=== PATIENT | male | born 1970 | race Caucasian/White ===

== ENCOUNTER 2016-12-04 00:09 | Inpatient (IN) | payer BC, OTHER ==
--- NOTE | 2016-12-04 00:39 | ED ---
Psych HPI - General Chief Complaint: Psychiatric Symptoms Stated Complaint: mental health Time Seen by Provider: 12/04/16 00:22 Source: patient, RN notes reviewed Mode of arrival: ambulatory - History of Present Illness Initial Comments: 46 yo male presents to the emergency department with a chief complaint of suicidal ideation. Patient states that he recently went through a separation with his he sells life with another man coby. Patient states his only been taking about suicide but this seemed to make it worse. Patient states she is here for help. He is concerned about her safety. Patient denies any history of this in the past.Patient denies any recent fever, chills, shortness of breath, chest pain, back pain, abdominal pain, nausea vomiting, numbness or tingling, dysuria or hematuria, constipation or diarrhea, headaches or visual changes, or any other current symptoms. - Related Data Home Medications Medication Instructions Recorded Confirmed No Known Home Medications [No 12/04/16 12/04/16 Known Home Medications] Allergies Allergy/AdvReac Type Severity Reaction Status Date / Time No Known Allergies Allergy Verified 12/04/16 00:21 Review of Systems ROS Statement: Those systems with pertinent positive or pertinent negative responses have been documented in the HPI. ROS Other: All systems not noted in ROS Statement are negative. Past Medical History Additional Past Medical History / Comment(s): [place] Spotted Fever 1970 History of Any Multi-Drug Resistant Organisms: None Reported Past Surgical History: No Surgical Hx Reported Past Psychological History: No Psychological Hx Reported Smoking Status: Current every day smoker Past Alcohol Use History: Daily Past Drug Use History: None Reported General Exam Limitations: no limitations General appearance: alert, in no apparent distress Neck exam: Present: normal inspection. Absent: tenderness, meningismus, lymphadenopathy Respiratory exam: Present: normal lung sounds bilaterally. Absent: respiratory distress, wheezes, rales, rhonchi, stridor Cardiovascular Exam: Present: regular rate, normal rhythm, normal heart sounds. Absent: systolic murmur, diastolic murmur, rubs, gallop, clicks Back exam: Present: normal inspection Neurological exam: Present: alert, oriented X3, CN II-XII intact. Absent: motor sensory deficit Psychiatric exam: Present: depressed, suicidal ideation. Absent: homicidal ideation Skin exam: Present: warm, dry, intact, normal color. Absent: rash Course Vital Signs 12/04/16 00:17 Temperature 97.8 F Pulse Rate 79 Respiratory 18 Rate Blood Pressure 137/95 O2 Sat by Pulse 99 Oximetry Medical Decision Making - Medical Decision Making 46 yo male presents emergency department chief complaint of suicidal ideation. At this time the patient does not appear to be suffering from acute medical emergencies. This time the patient is cleared to be evaluated by psychiatry. This and patient will be transferred to inpatient psych. Disposition Clinical Impression: Depression Disposition: TRANSFER TO PSYCH HOSP/UNIT
[2016-12-04] MEDS ORDERED: MAGNESIUM HYDROXIDE 2,400 MG/10 ML CUP PO PRN (03:15)
[2016-12-04] MEDS ORDERED: ZIPRASIDONE 20 MG VIAL IM PRN (03:15)
[2016-12-04] MEDS ORDERED: ACETAMINOPHEN TAB 325 MG TAB PO PRN (03:15)
[2016-12-04] MEDS ORDERED: MAG HYDROX/AL HYDROX/SIMETH 30 ML CUP PO PRN (03:15)
[2016-12-04] MEDS ORDERED: LORazepam 2 MG/ML SYRINGE IM PRN (03:24)
[2016-12-04] MEDS: LORazepam 1 MG TAB PO PRN ×3 (04:04→22:09)
[2016-12-04 04:50] VITALS: BMI 21.4
[2016-12-04 08:39] LABS: Basophils % (A) 1 %; CH 32.5; CHCM 34.1; Eosinophils # (A) 0.2 k/uL (0-0.7); Eosinophils % (A) 4 %; HCT 39.5 % (39.0-53.0); HDW 2.56; HGB 12.9 gm/dL (13.0-17.5); Luc # (Auto) 0.21; Luc % (Auto) 4; Lymphocytes # (A) 1.9 k/uL (1.0-4.8); Lymphocytes % (A) 34 %; MCH 31.3 pg (25.0-35.0); MCHC 32.7 g/dL (31.0-37.0); MCV 95.7 fL (80.0-100.0); Mean Platelet Volume 6.8; Monocytes # (A) 0.4 k/uL (0-1.0); Monocytes % (A) 7 %; Neutrophils # (A) 2.9 k/uL (1.3-7.7); Neutrophils % (A) 51 %; RBC 4.13 m/uL (4.30-5.90); RDW 13.6 % (11.5-15.5); WBC 5.7 k/uL (3.8-10.6); WBC (Perox) 5.65
[2016-12-04 08:44] LABS: ALT 34 U/L (21-72); AST 24 U/L (17-59); Alkaline Phosphatase 63 U/L (38-126); Anion Gap 7 mmol/L; Blood Urea Nitrogen 11 mg/dL (9-20); Calcium 9.4 mg/dL (8.4-10.2); Carbon Dioxide 31 mmol/L (22-30); Chloride 103 mmol/L (98-107); Glucose 92 mg/dL (74-99); Non-African American GFR(MDRD) >60 (>60 ml/min/1.73 sqM); Potassium 4.1 mmol/L (3.5-5.1); Sodium 141 mmol/L (137-145); Total Bilirubin 0.8 mg/dL (0.2-1.3); Total Protein 6.5 g/dL (6.3-8.2)
[2016-12-04] MEDS: NICOTINE 21MG/24HR PATCH TRANSDERM SCH (08:51)
--- NOTE | 2016-12-04 11:09 | P.CONS ---
History of Present Illness - Reason for Consult Consult date: 12/04/16 medical management - History of Present Illness This is a 46-year-old male. He does not have a primary care physician. He has a past medical history of [place] spotted fever in 1969. He also states he has had depression and anxiety all his life but has not been on treatment lately. He did have an admission to the mental health unit when he was 17 years old. He states he is currently going through a separation from his and has been very depressed. He states his anxiety is through the roof. He drove by a bar and saw his and her boss there. He states he has not been sleeping. He has a history of alcohol abuse and has been clean for 20 years and started drinking Smir[place] ice to have weeks ago. He is drinking an 8 pack per day. He denies any other street drug use. Patient came into [facility] emergency center for evaluation. TSH 1.990. Urine drug screen was negative and patient has been admitted to the mental health unit. Review of Systems All systems: negative Constitutional: Denies chills, Denies fever Eyes: denies blurred vision, denies pain Ears, nose, mouth and throat: Denies headache, Denies sore throat Cardiovascular: Denies chest pain, Denies shortness of breath Respiratory: Denies cough Gastrointestinal: Denies abdominal pain, Denies diarrhea, Denies nausea, Denies vomiting Musculoskeletal: Denies myalgias Integumentary: Denies pruritus, Denies rash Neurological: Denies numbness, Denies weakness Psychiatric: Reports anxiety, Reports hopelessness, Reports insomnia, Denies depression Endocrine: Denies fatigue, Denies weight change Past Medical History Past Medical History: No Reported History Additional Past Medical History / Comment(s): [place] Spotted Fever 1969 History of Any Multi-Drug Resistant Organisms: None Reported Past Surgical History: No Surgical Hx Reported Past Psychological History: Anxiety, Depression Smoking Status: Current every day smoker Past Alcohol Use History: Daily Additional Past Alcohol Use History / Comment(s): Patient is a smoker of one half pack per day for 30 or more years. He denies any medical marijuana, marijuana or street drug use. He has a history of alcohol abuse and has been clean for 20 years until 2 weeks ago when he started drinking an 8 pack of some urine off ice daily. Past Drug Use History: None Reported - Past Family History Father Additional Family Medical History / Comment(s): Father is alive at age 72 with no major medical problems. Mother Additional Family Medical History / Comment(s): Mother is alive at age 68 with history of motor vehicle accident and has significant hip and knee problems. Patient is an only child and does not have any brothers or sisters. Daughter(s) Additional Family Medical History / Comment(s): Patient has 3 daughters ages 22 , 14, 8 with no major medical problems. Medications and Allergies Home Medications Medication Instructions Recorded Confirmed Type No Known Home Medications [No 12/04/16 12/04/16 History Known Home Medications] Allergies Allergy/AdvReac Type Severity Reaction Status Date / Time No Known Allergies Allergy Verified 12/04/16 04:55 Physical Exam Vitals: Vital Signs Temp Pulse Resp BP 12/04/16 04:41 98.1 F 83 20 138/87 Intake and Output 12/03/16 12/04/16 12/04/16 22:59 06:59 14:59 Other: Weight 77.927 kg Gen: This is a thin 46-year-old male. He is cooperative. HEENT: Head is atraumatic, normocephalic. Pupils equal, round. Sclerae is anicteric. NECK: Supple. No JVD. No lymphadenopathy. No thyromegaly. LUNGS: Clear to auscultation. No wheezes or rhonchi. No intercostal retractions. HEART: Regular rate and rhythm. No murmur. ABDOMEN: Soft. Bowel sounds are present. No masses. No tenderness. EXTREMITIES: No pedal edema. No calf tenderness. NEUROLOGICAL: Patient is awake, alert and oriented x3. Cranial nerves 2 through 12 are grossly intact. Results CBC & Chem 7: 12/04/16 08:15 12/04/16 08:15 Labs: Abnormal Lab Results - Last 24 Hours (Table) 12/04/16 12/04/16 Range/Units 08:15 08:15 RBC 4.13 L (4.30-5.90) m/uL Hgb 12.9 L (13.0-17.5) gm/dL Carbon Dioxide 31 H (22-30) mmol/L Assessment and Plan Plan: 1. Depression and anxiety. Patient admitted to the mental health unit. Continue current plan of care. 2. Tobacco use and dependence. Continue nicotine patch. 3. History of alcohol abuse with recent relapse. Patient is on Ativan. Impression and plan of care have been directed as dictated by the signing physician. Humera Guillen nurse practitioner acting as scribe for signing physician. Time with Patient: Greater than 30
[2016-12-04] MEDS: ESCITALOPRAM 10 MG TAB PO SCH (12:50)
--- NOTE | 2016-12-04 12:55 | P.HP ---
Psychiatric H&P - . History & Physical: Allergies Allergy/AdvReac Type Severity Reaction Status Date / Time No Known Allergies Allergy Verified 12/04/16 04:55 Vital Signs Temp 98.1 F 12/04/16 04:41 Pulse 83 12/04/16 04:41 Resp 20 12/04/16 04:41 BP 138/87 12/04/16 04:41 Pulse Ox 99 12/04/16 00:17 Intake & Output 12/03/16 12/04/16 12/04/16 18:59 06:59 18:59 Weight 77.927 kg Laboratory Last Values WBC 5.7 k/uL (3.8-10.6) 12/04/16 08:15 RBC 4.13 m/uL (4.30-5.90) L 12/04/16 08:15 Hgb 12.9 gm/dL (13.0-17.5) L 12/04/16 08:15 Hct 39.5 % (39.0-53.0) 12/04/16 08:15 MCV 95.7 fL (80.0-100.0) 12/04/16 08:15 MCH 31.3 pg (25.0-35.0) 12/04/16 08:15 MCHC 32.7 g/dL (31.0-37.0) 12/04/16 08:15 RDW 13.6 % (11.5-15.5) 12/04/16 08:15 Plt Count 264 k/uL (150-450) 12/04/16 08:15 Neutrophils % 51 % 12/04/16 08:15 Lymphocytes % 34 % 12/04/16 08:15 Monocytes % 7 % 12/04/16 08:15 Eosinophils % 4 % 12/04/16 08:15 Basophils % 1 % 12/04/16 08:15 Neutrophils # 2.9 k/uL (1.3-7.7) 12/04/16 08:15 Lymphocytes # 1.9 k/uL (1.0-4.8) 12/04/16 08:15 Monocytes # 0.4 k/uL (0-1.0) 12/04/16 08:15 Eosinophils # 0.2 k/uL (0-0.7) 12/04/16 08:15 Basophils # 0.0 k/uL (0-0.2) 12/04/16 08:15 Sodium 141 mmol/L (137-145) 12/04/16 08:15 Potassium 4.1 mmol/L (3.5-5.1) 12/04/16 08:15 Chloride 103 mmol/L (98-107) 12/04/16 08:15 Carbon Dioxide 31 mmol/L (22-30) H 12/04/16 08:15 Anion Gap 7 mmol/L 12/04/16 08:15 BUN 11 mg/dL (9-20) 12/04/16 08:15 Creatinine 0.97 mg/dL (0.66-1.25) 12/04/16 08:15 Est GFR (MDRD) Af Amer >60 (>60 ml/min/1.73 sqM) 12/04/16 08:15 Est GFR (MDRD) Non-Af >60 (>60 ml/min/1.73 sqM) 12/04/16 08:15 Glucose 92 mg/dL (74-99) 12/04/16 08:15 Calcium 9.4 mg/dL (8.4-10.2) 12/04/16 08:15 Total Bilirubin 0.8 mg/dL (0.2-1.3) 12/04/16 08:15 AST 24 U/L (17-59) 12/04/16 08:15 ALT 34 U/L (21-72) 12/04/16 08:15 Alkaline Phosphatase 63 U/L (38-126) 12/04/16 08:15 Total Protein 6.5 g/dL (6.3-8.2) 12/04/16 08:15 Albumin 3.9 g/dL (3.5-5.0) 12/04/16 08:15 TSH 1.990 mIU/L (0.465-4.680) 12/04/16 08:15 Urine Opiates Screen Not Detected (NotDetected) 12/04/16 01:30 Ur Oxycodone Screen Not Detected (NotDetected) 12/04/16 01:30 Urine Methadone Screen Not Detected (NotDetected) 12/04/16 01:30 Ur Propoxyphene Screen Not Detected (NotDetected) 12/04/16 01:30 Ur Barbiturates Screen Not Detected (NotDetected) 12/04/16 01:30 U Tricyclic Antidepress Not Detected (NotDetected) 12/04/16 01:30 Ur Phencyclidine Scrn Not Detected (NotDetected) 12/04/16 01:30 Ur Amphetamines Screen Not Detected (NotDetected) 12/04/16 01:30 U Methamphetamines Scrn Not Detected (NotDetected) 12/04/16 01:30 U Benzodiazepines Scrn Not Detected (NotDetected) 12/04/16 01:30 Urine Cocaine Screen Not Detected (NotDetected) 12/04/16 01:30 U Marijuana (THC) Screen Not Detected (NotDetected) 12/04/16 01:30 12/04/16 12:45 IDENTIFYING DATA: This patient is a 46-year-old male who presented to the emergency room with acute suicidal ideation. HPI: The patient states that he has been experiencing severe symptoms of depression and reports that he is "at the lowest point ever". He feels hopeless he has suicidal thoughts with a plan of asphyxiating himself in the garage. Sleep is poor energy is low appetite is decreased. He is experiencing anhedonia. This occurs in the context of his asking for a separation and more recently talking about getting . Just the other evening he found her out at the bar with her boss. He states that was "the last straw". He reports a long history of major depressive disorder episodes. He states he has no insurance and was not able to get into an outpatient mental health clinic. He endorses intermittent symptoms of anxiety. No history of hypomanic or manic episodes, no report of hallucinations or specific delusions. He reports having no firearms at home. He has no homicidal ideation intent or plan. PAST PSYCHIATRIC HISTORY: This is the patient's second inpatient psychiatric admissions the first one was age [age] years old for suicidal ideation. No history of suicide attempts. He has previously been treated with Adderall Wellbutrin and Lexapro. He reports a good response with Lexapro in the past. PMH: None reported ALLERGIES: NO KNOWN DRUG ALLERGIES MEDICATIONS: None CHEMICAL DEPENDENCY HISTORY: He reports a history of alcohol use disorder and he has been sober for 20 years however 3 weeks ago he started drinking 8-12 beers a day. No use of marijuana or other illicit drugs he has never been placed in residential treatment for chemical dependency reasons. FAMILY PSYCHIATRIC HISTORY: None reported no suicides in the family FAMILY CHEMICAL DEPENDENCY HISTORY: The patient's biological father and maternal uncle were known to have alcohol use disorder SOCIAL HISTORY: The patient is 46 years old he's been for 22 years they have been for approximately 3 weeks. They have 3 children ages 8 and 14 together he has a 22-year-old child from another relationship. The patient is originally from [place] his biological father prior to his and he was raised by a stepfather. 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 He endorses no PTSD symptoms. He was honorably discharged. Legal history he was arrested 25 years ago for breaking and entering and uttering and publishing, no abuse history endorsed. MENTAL STATUS EXAM: The patient is a tall thin balding male. He wears eyeglasses he seated calmly in his chair dressed in a T-shirt and jeans. Eye contact is appropriate. He describes a significantly depressed mood with hopelessness thinking and suicidal ideation. He reports no homicidal ideation intent or plan. He endorses no auditory or visual hallucinations or any specific delusions. There is no evidence of psychosis. Thought process is linear he demonstrates no tangential thinking associations or flight of ideas. Insight and judgment limited. He demonstrates no tremulousness activity no psychomotor slowing. He demonstrates no verbal or physical aggressiveness. He is oriented to person place and date he is able to spell world backwards. STRENGTHS/WEAKNESSES: Strengths: Housing, employment, and presenting for help weaknesses: Relapse with alcohol use INTELLECTUAL FUNCTIONING: Average IMPRESSIONS: [] 1. Major depressive disorder recurrent severe without psychosis, alcohol use disorder 2. Marital separation 3. Psychosocial dysfunction due to exacerbation of depressive symptoms in the context of relapsing alcohol use PLAN: The patient has been admitted to the mental health unit he is here voluntarily. We reviewed his presenting symptoms and medication options. We decided to initiate Lexapro 10 mg daily as he has been successful with that medication in the past and he felt that it worked quickly. We are monitoring for any alcohol withdrawal symptoms Ativan is available as needed. He has been seen for a routine medical consultation. Social work will meet with the patient to complete a psychosocial assessment and begin discharge planning. We will involve family in treatment and discharge planning as he will allow. He is encouraged to participate in the milieu. We will monitor for safety
[2016-12-05] MEDS: ESCITALOPRAM 10 MG TAB PO SCH (08:42)
[2016-12-05] MEDS: NICOTINE 21MG/24HR PATCH TRANSDERM SCH (08:42)
[2016-12-05] MEDS: LORazepam 1 MG TAB PO PRN ×2 (08:43→21:21)
--- NOTE | 2016-12-05 10:32 | P.PN ---
Progress Note - Text Interval history: The patient is found in the hallway he follows me to an interview room. He reports that he slept quite well last night he did utilize the Ativan at bedtime. His vital signs were within normal limits her out the day but they seem to heighten in the evening hours. He reports no feelings of alcohol withdrawal including tremor. He did speak with his 8-year-old daughter on the phone and that was helpful for him to hear her voice. He is trying to foster some optimistic thinking. No questions or concerns regarding his Lexapro. We discussed his use of alcohol he feels he does not need inpatient chemical dependency treatment but is willing to attend AA meetings upon discharge. He is concerned that if he's here too long it will affect his job status. Mental status exam: The patient's a thin male he seated calmly eye contact is appropriate speech is fluent. He is cooperative. He reports a depressed mood but some improvement today compared to yesterday. He states he has no acute suicidal ideation intent or plan. No homicidal ideation intent or plan. He is endorsing no symptoms of psychosis hypomania or wei and there is no evidence of those symptoms. Thought process is linear and goal-directed. He is oriented to person place and date. No psychomotor agitation observed. Plan: The patient will continue on his current medication we will monitor for any alcohol withdrawal symptoms. He is encouraged to continue participating in the milieu. Vital signs reviewed. Dr. Valero will assume care of this patient starting tomorrow.
[2016-12-06] MEDS: ESCITALOPRAM 10 MG TAB PO SCH (08:38)
[2016-12-06] MEDS: NICOTINE 21MG/24HR PATCH TRANSDERM SCH (08:38)
[2016-12-06] MEDS: LORazepam 1 MG TAB PO PRN (08:38)
[2016-12-06] MEDS ORDERED: hydrOXYzine PAMOATE 25 MG CAP PO PRN (17:06)
--- NOTE | 2016-12-06 17:14 | P.PN ---
Progress Note - Text Interval history: The patient was laying in his bed ,had been using at least two doses of Ativan over last 24 hours . He reports that he slept quite well last night he did utilize the Ativan at bedtime. His vital signs were within normal limits His last alcohol use was 4 days ago. He reports no feelings of alcohol withdrawal including tremor. . We discussed his use of alcohol he feels he does not need inpatient chemical dependency treatment but is willing to attend AA meetings upon discharge. He is concerned that if he's here too long it will affect his job status saying "THEY TOLD ME IF I SIGNED MYSELF IN I CAN SIGN MYSELF OUT",discussed with patient that we need to monitor any benzodiazepine withdrawal ,agreed to discontinue Ativan and monitor Vitals Mental status exam: The patient's a thin male he seated calmly eye contact is appropriate speech is fluent. He is cooperative. He reports a depressed mood and anxiety He states he has no acute suicidal ideation intent or plan. No homicidal ideation intent or plan. He is endorsing no symptoms of psychosis hypomania or wei and there is no evidence of those symptoms. Thought process is linear and goal-directed. He is oriented to person place and date. No psychomotor agitation observed. Plan: Continue Lexapro ,discontinue Ativan ,Vistaril PRN ,Trazodone PRN , encourage groups participation
[2016-12-06] MEDS: traZODone HCL 50 MG TAB PO PRN (22:03)
[2016-12-07 06:12] VITALS: RESP 16
[2016-12-07] MEDS: NICOTINE 21MG/24HR PATCH TRANSDERM SCH (08:53)
[2016-12-07] MEDS: ESCITALOPRAM 10 MG TAB PO SCH (08:54)
--- NOTE | 2016-12-07 11:46 | P.PN ---
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 He is cooperative. He reports a depressed mood and anxiety He states he has no acute suicidal ideation intent or plan. No homicidal ideation intent or plan. He is endorsing no symptoms of psychosis hypomania or wei and there is no evidence of those symptoms. Thought process is linear and goal-directed. He is oriented to person place and date. No psychomotor agitation observed. Plan: Increase Lexapro 20 mg,Vistaril PRN ,Trazodone PRN ,encourage groups participation
[2016-12-07] MEDS: traZODone HCL 50 MG TAB PO PRN (20:50)
[2016-12-08 06:41] VITALS: BP 116/56; PULSE 82; TEMP 97.7
[2016-12-08] MEDS: NICOTINE 21MG/24HR PATCH TRANSDERM SCH (08:01)
[2016-12-08] MEDS ORDERED: ESCITALOPRAM 20 MG TAB PO SCH (09:00)
--- NOTE | 2016-12-08 09:07 | DS ---
DATE OF ADMISSION: 12/04/2016 DATE OF DISCHARGE: 12/08/2016 CONSULT PHYSICIAN: Randolph. CONSULTING PROVIDER: Humera Guillen. CONSULT REASON: For medical management. Do you want consulting provider notified? Yes. DISCHARGE DIAGNOSES: 1. Depressive disorder, not otherwise specified versus chronic depression. 2. Alcohol use disorder, continuous. BRIEF SUMMARY OF THE ADMISSION NOTE: The patient was admitted to the mental health unit from the emergency department for depression and suicidal ideation. For complete history and physical examination, please refer to Dr. Esquivel dictation on December 04. HOSPITAL COURSE: Patient was admitted on voluntary basis and he was started on alcohol detox. In addition, he was started on Lexapro. During the first 48 hours, patient was very drowsy sleeping most of the daytime as he was getting between 2 and 3 mg of Ativan a day. Initially his vital signs were high, however, after the first 24 hours, they were within normal limits. When I saw the patient on December 06, on Tuesday, patient did not have any alcohol withdrawal symptoms including tremor. Patient was only complaining of feeling tired and fatigued so I discontinued the Ativan and I did monitor his vital signs within the next 48 hours, they were stable and patient did not experience any alcohol withdrawal or benzodiazepine withdrawal. Patient was having trouble sleeping at night as he used to have the Ativan for sleep so I started him on trazodone and it was effective and he was able to sleep between 7 to 8 hours at night. I did speak with the patient about his condition and he stated that he did accept the end of his marriage and he wanted to be better father to his children, as he has 3 daughters, age 8, 14 and 22. Patient stated that he has been staying with his parents who are very supportive to him and he did start new job that he does like 2 months ago. Patient was discussing a lot of positive optimist goals and he did not have any side effect from psychotropic medication. I had a lengthy discussion with him regarding his use of alcohol, but he does not feel that he needs inpatient chemical dependency treatment, but he stated that he will be attending AA meeting on a daily basis upon discharge. MENTAL STATUS EXAMINATION: At the time of discharge, patient is a male who ( ) calmly, good eye contact, speech fluent, cooperative. He denied any depressive symptoms. He denied any anxiety symptoms. He denied any acute suicidal ideation, intent or plan. No homicidal ideation, intent or plan. He is not endorsing any symptoms of psychosis including idea of reference or hallucinations. Denied any hypomania or wei. Thought process is linear and goal directed. He is oriented to person, place and date. There is no verbal or physical aggression observed. His insight and judgment are improving. PLAN: 1. Patient will be discharged from the mental health unit today. 2. Patient wouldn't attend AA meeting at least between 4 to 5 a week. 3. Patient will return back to work and he was given excuse for the last couple of days. 4. Patient was given one-month supply of Lexapro 20 mg daily for depression and anxiety; trazodone 50 mg as needed for insomnia and nicotine patch for smoking cessation. 5. Patient is aware of the negative impact of alcohol on his mental and physical health and he did verbalize that he will stay in recovery and be compliant with outpatient counseling. There is no eminent safety risk and patient is appropriate for transition to outpatient care. Patient does not have access to any firearms. Patient was instructed to return to the emergency room if any acute safety concern. Patient's condition at the time of the discharge, stable.
== END 2016-12-08 12:21 | disposition home or self-care (01) | DRG 885 ==
LOC: EC 00:09 → 3MHU 02:43
PROVIDERS: ADMIT Psychiatry & Neurology Psychiatry; ATTEND Psychiatry & Neurology Psychiatry
PROC: HZ2ZZZZ Detoxification Services for Substance Abuse Treatment (ICD-10-PCS; principal; 2016-12-04)
DX: F33.2 Major depressive disorder, recurrent severe without psychotic features (principal); R45.851 Suicidal ideations; F41.9 Anxiety disorder, unspecified; F59 Unspecified behavioral syndromes associated with physiological disturbances and physical factors; F10.10 Alcohol abuse, uncomplicated; G47.00 Insomnia, unspecified; F17.200 Nicotine dependence, unspecified, uncomplicated; Z71.6 Tobacco abuse counseling; Z71.41 Alcohol abuse counseling and surveillance of alcoholic; Z63.5 Disruption of family by separation and divorce; Z81.1 Family history of alcohol abuse and dependence; Z86.19 Personal history of other infectious and parasitic diseases
CPT/HCPCS: 80053; 80306; 84443; 85025; 99285

== ENCOUNTER 2017-03-16 10:16 | Observation (INO) | payer OTHER ==
[2017-03-16] MEDS ORDERED: SODIUM CHLORIDE 0.9% 1,000 ML IV STA (11:44)
[2017-03-16] MEDS ORDERED: ONDANSETRON 4 MG/2 ML VIAL IVP STA (11:44)
[2017-03-16] MEDS ORDERED: PANTOPRAZOLE 40 MG/10 ML VIAL IVP STA (11:46)
--- NOTE | 2017-03-16 11:48 | ED ---
General Adult HPI - General Chief complaint: Nausea/Vomiting/Diarrhea Stated complaint: abd pain Time Seen by Provider: 03/16/17 10:45 Source: patient, family, RN notes reviewed Mode of arrival: ambulatory Limitations: no limitations - History of Present Illness Initial comments: This is a 46-year-old male who presents emergency Department complaining of vomiting. Patient states this is been ongoing for 3 years. Patient states he gets symptoms sick quickly but when he starts to vomit he can't seem to stop for a couple of days. Patient started vomiting on Tuesday he vomited throughout the night on Tuesday however he felt better Went to work. Tuesday night he started vomiting again and he continued vomiting yesterday and again this morning. Patient states in between the vomiting episodes she feels fine and eating normally. Patient states once he starts vomiting he has no abdominal pain except for when he is vomiting aside from that his belly feels fine. Patient denies any diarrhea. Patient denies any burning sensation or heartburn-like symptoms. Patient denies any chest pain difficult breathing shortness of breath. Patient denies any patient denies numbness weakness. Patient denies any recent fever or chills. Patient denies any back pain. Patient denies any lightheadedness dizziness or near syncopal episode. - Related Data Previous Rx's Medication Instructions Recorded Escitalopram [Lexapro] 20 mg PO DAILY 30 Days 12/08/16 Allergies Allergy/AdvReac Type Severity Reaction Status Date / Time No Known Allergies Allergy Verified 03/16/17 10:58 Review of Systems ROS Statement: Those systems with pertinent positive or pertinent negative responses have been documented in the HPI. ROS Other: All systems not noted in ROS Statement are negative. Past Medical History Past Medical History: No Reported History Additional Past Medical History / Comment(s): [place] Spotted Fever 1970 History of Any Multi-Drug Resistant Organisms: None Reported Past Surgical History: No Surgical Hx Reported Past Psychological History: Anxiety, Depression Smoking Status: Current every day smoker Past Alcohol Use History: None Reported Past Drug Use History: None Reported - Past Family History Father Additional Family Medical History / Comment(s): Father is alive at age 72 with no major medical problems. Mother Additional Family Medical History / Comment(s): Mother is alive at age 68 with history of motor vehicle accident and has significant hip and knee problems. Patient is an only child and does not have any brothers or sisters. Daughter(s) Additional Family Medical History / Comment(s): Patient has 3 daughters ages 22 , 14, 8 with no major medical problems. General Exam - General Exam Comments Initial Comments: GENERAL: Patient is well-developed and well-nourished. Patient is nontoxic and well- hydrated and is in mild distress. ENT: Neck is soft and supple. No significant lymphadenopathy is noted. Oropharynx is clear. Moist mucous membranes. Neck has full range of motion without eliciting any pain. EYES: The sclera were anicteric and conjunctiva were pink and moist. Extraocular movements were intact and pupils were equal round and reactive to light. Eyelids were unremarkable. PULMONARY: Unlabored respirations. Good breath sounds bilaterally. No audible rales rhonchi or wheezing was noted. CARDIOVASCULAR: There is a regular rate and rhythm without any murmurs gallops or rubs. ABDOMEN: Soft and nontender with normal bowel sounds. No palpable organomegaly was noted. There is no palpable pulsatile mass. SKIN: Skin is clear with no lesions or rashes and otherwise unremarkable. NEUROLOGIC: Patient is alert and oriented x3. Cranial nerves II through XII are grossly intact. Motor and sensory are also intact. Normal speech, volume and content. Symmetrical smile. MUSCULOSKELETAL: Normal extremities with adequate strength and full range of motion. No lower extremity swelling or edema. No calf tenderness. LYMPHATICS: No significant lymphadenopathy is noted PSYCHIATRIC: Normal psychiatric evaluation. Normal interpersonal interactions appears functionally intact in deals appropriately with others. No signs of depression. No signs of anxiety. Limitations: no limitations Course Vital Signs 03/16/17 03/16/17 10:32 11:00 Temperature 97.9 F 97.2 F L Pulse Rate 66 72 Respiratory 18 16 Rate Blood Pressure 146/93 144/87 O2 Sat by Pulse 98 99 Oximetry Medical Decision Making - Medical Decision Making EKG shows sinus bradycardia with 59 bpm FL interval is 156 QRS is 90 QT interval 412 QTC is 407. Patient's EKG shows no ST segment elevation or depression or T wave abnormalities are noted. CAT scan showed esophagitis possibly. Patient had elevated lipase patient still continues to feel nauseous but has not vomited while in the ER patient also did receive Zofran and he did not eat over the last couple of days. - Lab Data Result diagrams: 03/16/17 10:50 03/16/17 10:50 Lab Results 03/16/17 03/16/17 Range/Units 10:50 10:50 WBC 10.2 (3.8-10.6) k/uL RBC 4.76 (4.30-5.90) m/uL Hgb 15.1 (13.0-17.5) gm/dL Hct 44.4 (39.0-53.0) % MCV 93.1 (80.0-100.0) fL MCH 31.8 (25.0-35.0) pg MCHC 34.1 (31.0-37.0) g/dL RDW 13.4 (11.5-15.5) % Plt Count 265 (150-450) k/uL Neutrophils % 82 % Lymphocytes % 10 % Monocytes % 5 % Eosinophils % 1 % Basophils % 0 % Neutrophils # 8.3 H (1.3-7.7) k/uL Lymphocytes # 1.1 (1.0-4.8) k/uL Monocytes # 0.5 (0-1.0) k/uL Eosinophils # 0.1 (0-0.7) k/uL Basophils # 0.0 (0-0.2) k/uL Sodium 137 (137-145) mmol/L Potassium 3.7 (3.5-5.1) mmol/L Chloride 100 (98-107) mmol/L Carbon Dioxide 26 (22-30) mmol/L Anion Gap 11 mmol/L BUN 17 (9-20) mg/dL Creatinine 0.82 (0.66-1.25) mg/dL Est GFR (MDRD) Af Amer >60 (>60 ml/min/1.73 sqM) Est GFR (MDRD) Non-Af >60 (>60 ml/min/1.73 sqM) Glucose 103 H (74-99) mg/dL Calcium 9.3 (8.4-10.2) mg/dL Total Bilirubin 0.5 (0.2-1.3) mg/dL AST 20 (17-59) U/L ALT 21 (21-72) U/L Alkaline Phosphatase 101 (38-126) U/L Total Protein 6.8 (6.3-8.2) g/dL Albumin 4.2 (3.5-5.0) g/dL Amylase 88 (30-110) U/L Lipase 565 H (23-300) U/L Disposition Clinical Impression: Pancreatitis, Intractable vomiting Disposition: ADMITTED IP TO THIS HOSP Referrals: None,Stated [Primary Care Provider] - 1-2 days Time of Disposition: 13:37
[2017-03-16 12:01] LABS: Basophils % (A) 0 %; Eosinophils # (A) 0.1 k/uL (0-0.7); Eosinophils % (A) 1 %; HDW 2.36; RDW 13.4 % (11.5-15.5)
[2017-03-16 12:04] LABS: CH 33.4; HCT 44.4 % (39.0-53.0); HGB 15.1 gm/dL (13.0-17.5); Luc # (Auto) 0.17; Luc % (Auto) 2; Lymphocytes # (A) 1.1 k/uL (1.0-4.8); Lymphocytes % (A) 10 %; MCH 31.8 pg (25.0-35.0); MCHC 34.1 g/dL (31.0-37.0); MCV 93.1 fL (80.0-100.0); Monocytes # (A) 0.5 k/uL (0-1.0); Monocytes % (A) 5 %; Neutrophils # (A) 8.3 k/uL (1.3-7.7); Neutrophils % (A) 82 %; RBC 4.76 m/uL (4.30-5.90); WBC 10.2 k/uL (3.8-10.6); WBC (Perox) 9.85
[2017-03-16 12:09] LABS: ALT 21 U/L (21-72); AST 20 U/L (17-59); Alkaline Phosphatase 101 U/L (38-126); Amylase 88 U/L (30-110); Anion Gap 11 mmol/L; Blood Urea Nitrogen 17 mg/dL (9-20); Calcium 9.3 mg/dL (8.4-10.2); Carbon Dioxide 26 mmol/L (22-30); Chloride 100 mmol/L (98-107); Glucose 103 mg/dL (74-99); Non-African American GFR(MDRD) >60 (>60 ml/min/1.73 sqM); Potassium 3.7 mmol/L (3.5-5.1); Sodium 137 mmol/L (137-145); Total Bilirubin 0.5 mg/dL (0.2-1.3); Total Protein 6.8 g/dL (6.3-8.2)
[2017-03-16] MEDS ORDERED: RX INFO: IV CONTRAST WAS GIVEN 1 EACH MISC MISCELLANE PRN (12:20)
--- NOTE | 2017-03-16 13:30 | CT ---
EXAMINATION TYPE: CT abdomen pelvis w con DATE OF EXAM: 03/16/2017 COMPARISON: NONE HISTORY: Abd pain with nausea vomiting and diarrhea. CT DLP: 602.2 mGycm, Automated Exposure Control for Dose Reduction was Utilized. CONTRAST: CT scan of the abdomen and pelvis is performed without oral but with IV Contrast, patient injected wi th 100 mL of Omnipaque 300. FINDINGS: LUNG BASES: No significant abnormality is appreciated. LIVER/GB: No significant abnormality is appreciated. PANCREAS: No significant abnormality is seen. SPLEEN: No significant abnormality is seen. ADRENALS: No significant abnormality is seen. KIDNEYS: There are 1-3 tiny calculi measuring 2 mm or smaller lower pole level right kidney. There is cortical medullary uptake but nonvisualized excretion bilaterally. There is renal pelvis prominence on the left without calyceal dilatation suggesting extrarenal pelvis. No obstructing calculi are kamila rly seen. There are few right-sided pelvic phleboliths noted. No intraluminal calculus and bladder is seen. BOWEL: Moderate wall thickening of distal esophagus extending through diaphragmatic hiatus is felt pr esent near axial image 3. Consider esophagitis, clinical correlation advised. Neoplasm can have this appearance. The need to further investigate by direct visualization should be based on clinical corre lation. Evaluation is suboptimal secondary to lack of enteric contrast. There is no suspicious small or large bowel dilatation. Appendix is felt within normal limits seen from inferior aspect of cecum. PROSTATE/SEMINAL VESICLES: Prostate gland is enlarged in size consistent with BPH. LYMPH NODES: No greater than 1cm abdominal or pelvic lymph nodes are appreciated. OSSEOUS STRUCTURES: There is moderate disc space narrowing with vacuum disc phenomenon and subchondra l cystic change L3-L4 and L4-L5 levels. There is mild height loss involving superior T12 endplate wit h sclerosis. OTHER: No significant additional abnormality is seen. IMPRESSION: 1. No bowel obstruction is seen. Possible distal esophagitis, clinical correlation advised 2.
[2017-03-16] MEDS ORDERED: SODIUM CHLORIDE 0.9% 1,000 ML IV ONE (13:38)
[2017-03-16] MEDS ORDERED: ONDANSETRON 4 MG/2 ML VIAL IVP PRN (13:40)
[2017-03-17 07:45] VITALS: RESP 20
[2017-03-17 08:18] LABS: ALT 17 U/L (21-72); AST 17 U/L (17-59); Alkaline Phosphatase 81 U/L (38-126); Amylase 51 U/L (30-110); Anion Gap 7 mmol/L; Blood Urea Nitrogen 11 mg/dL (9-20); Calcium 8.6 mg/dL (8.4-10.2); Carbon Dioxide 25 mmol/L (22-30); Chloride 105 mmol/L (98-107); Glucose 90 mg/dL (74-99); Non-African American GFR(MDRD) >60 (>60 ml/min/1.73 sqM); Potassium 3.9 mmol/L (3.5-5.1); Sodium 137 mmol/L (137-145); Total Bilirubin 0.7 mg/dL (0.2-1.3); Total Protein 5.9 g/dL (6.3-8.2)
[2017-03-17] MEDS ORDERED: PANTOPRAZOLE 40 MG/10 ML VIAL IVP SCH (09:00)
--- NOTE | 2017-03-17 10:15 | P.CONS ---
History of Present Illness - Reason for Consult Consult date: 03/17/17 pancreatitis Requesting physician: Frankie Jovel - History of Present Illness 46-year-old malehistory of anxiety depression cigarette dependency and [place] spotted fever 1969 presented with intractable nausea vomiting bilious emesis 4 days. These symptoms have been chronic for more than 5 years. Denies fever, chills, hematemesis hematochezia melena. No weight loss. Consultation requested for pancreatitis. Liver function tests normal. Amylase 88. Lipase 565 presently 97. no history of pancreatitis. remote EtOH more than 20 years ago. When questioned not actively drinking alcohol. Denies illicit drug use. denies epigastric pain mostly nausea. patient states his symptoms seem to be only in the morning and then he feels better in the afternoon. No changes in medications. No history of autoimmune disorders. CT without oral contrast abdomen pelvis reported moderate wall thickening of the distal esophagus extending to the diaphragmatic hiatus. Consider esophagitis. Neoplasm could have this appearance. Direct visualization contingent on clinical correlation. liver gallbladder pancreas spleen no significant abnormality seen. Review of Systems Constitutional: Denies fever, chills, sweats, weight gain, or loss. HEENT: Negative for migraines, blurred vision or loss, earaches, drainage, tinnitus, oral mucosal lesions, dysphagia, or odynophagia. Cardiac: Negative for chest pain, arrhythmias, or palpitation. Respiratory: Negative for shortness of breath, hemoptysis, cough, or sputum production. Gastrointestinal: See HPI for pertinent findings. Genitourinary: Negative for hematuria, urgency, frequency, polyuria, dysuria, or penile discharge. Musculoskeletal: Negative for muscle aches, swelling, arthritis, and arthralgias. Neurologic: Negative for stroke or TIA. Endocrine: Negative for thyroid problems. Skin: Negative for rash or itching. Psychiatric: Negative history for depression and anxiety All systems: negative (see HPI) Past Medical History Past Medical History: No Reported History Additional Past Medical History / Comment(s): [place] Spotted Fever 1969 History of Any Multi-Drug Resistant Organisms: None Reported Past Surgical History: No Surgical Hx Reported Past Psychological History: Anxiety, Depression Smoking Status: Current every day smoker Past Alcohol Use History: None Reported Past Drug Use History: None Reported - Past Family History Father Additional Family Medical History / Comment(s): Father is alive at age 72 with no major medical problems. Mother Additional Family Medical History / Comment(s): Mother is alive at age 68 with history of motor vehicle accident and has significant hip and knee problems. Patient is an only child and does not have any brothers or sisters. Daughter(s) Additional Family Medical History / Comment(s): Patient has 3 daughters ages 22 , 14, 8 with no major medical problems. Medications and Allergies Allergies Allergy/AdvReac Type Severity Reaction Status Date / Time No Known Allergies Allergy Verified 03/16/17 10:58 Physical Exam Vitals: Vital Signs Temp Pulse Pulse Resp BP BP BP 03/17/17 07:00 97.4 F L 59 L 20 121/91 03/16/17 23:00 98.2 F 70 18 125/75 03/16/17 15:00 97.7 F 63 16 122/76 03/16/17 11:00 97.2 F L 72 16 144/87 03/16/17 10:32 97.9 F 66 18 146/93 Pulse Ox 03/17/17 07:00 96 03/16/17 23:00 98 03/16/17 15:00 96 03/16/17 11:00 99 03/16/17 10:32 98 Intake and Output 03/16/17 03/17/17 03/17/17 22:59 06:59 14:59 Intake Total 300 0 Balance 300 0 Intake: Oral 300 0 Other: Voiding Method Toilet # Voids 1 2 General appearance: The patient is alert, oriented, in no acute distress. HET: Head is normocephalic and atraumatic. Pupils are equal and reactive. Oropharynx is clear without lesions. Neck: Supple without lymphadenopathy. Trachea midline. Heart: S1 S2. Regular rate and rhythm. Lungs: No crackles or wheezes are heard. Abdomen: Soft, nontender, nondistended with bowel sounds. No peritoneal signs. No palpable organomegaly or masses. Extremities: Normal skin color and turgor. No cyanosis, rash, ulceration, clubbing, or edema. Radial and pedal pulses are 2/4 bilaterally. Neurological: No focal deficits. Strength and sensation are grossly intact. Results CBC & Chem 7: 03/16/17 10:50 03/17/17 07:45 Labs: Abnormal Lab Results - Last 24 Hours (Table) 03/16/17 03/16/1703/17/17 Range/Units 10:50 10:50 07:45 Neutrophils # 8.3 H (1.3-7.7) k/uL Glucose 103 H (74-99) mg/dL ALT 17 L (21-72) U/L Total Protein 5.9 L (6.3-8.2) g/dL Albumin 3.3 L (3.5-5.0) g/dL Lipase 565 H (23-300) U/L Assessment and Plan (1) Serum lipase elevation Narrative/Plan: 46-year-old male with acute on chronic nausea vomiting greater than 5 year duration presents with nausea and nonspecific elevation of lipase and normal amylase with history of remote EtOH abuse not actively drinking alcohol possible acute pancreatitis. CT imaging reported no abnormality of the gallbladder or pancreas. esophageal thickening per CT neoplasm cannot be excluded. Status: Acute (2) Intractable vomiting Status: Acute Plan: 1. GI prophylaxis Protonix 40 mg IV. 2. We'll proceed with EGD evaluation today to evaluate CT findings. 3. Supportive measures. The recreational sports director has discussed the risks, benefits and alternative therapies for the above-mentioned procedure and for both sedation/analgesia as well as necessary blood product administration, if indicated, as they pertain to this patient. The patient has indicated understanding and acceptance of the risks and procedures discussed. Thank you for this kind referral and the opportunity to participate in the care of your patient. This consultation was discussed with Dr. Zambrano. The impression and plan of care have been directed as dictated.
--- NOTE | 2017-03-17 12:05 | P.PN ---
Subjective 46 -year-old male being seen sitting up in bed. Patient is aware of the plan of care. Patient is scheduled today for EGD by GI service. Patient currently is denying any nausea vomiting and denying abdominal pain. Patient's initial presentation was to the emergency room with a chief complaint of nausea. Patient currently when questioning states he is not been actively drinking alcohol. Patient was admitted to the services of the attending with a GI consultation requested. Patient's CAT scan showed no acute abnormality of the gallbladder or the pancreas. It did show esophageal thickening per CT neoplastic could not be excluded. GI recommended proceeding with an EGD today to evaluate the CAT scan findings patient has elected to proceed. On admission the amylase was 565 this morning is down to 97. AST and ALT are not elevated. Patient states is anxious to be discharged if there are no acute findings on EGD Objective - Vital Signs Vital signs: Vital Signs Temp 97.4 F L 03/17/17 07:00 Pulse 59 L 03/17/17 07:00 Resp 20 03/17/17 07:00 BP 121/91 03/17/17 07:00 Pulse Ox 96 03/17/17 07:00 Intake & Output 03/16/17 03/17/17 03/17/17 18:59 06:59 18:59 Intake Total 300 Balance 300 Weight 81.647 kg Intake: Oral 300 Other: Voiding Method Toilet # Voids 1 2 - Exam GENERAL APPEARANCE: patient is alert, oriented, in no acute distress talkative sitting up in bed. VITAL SIGNS: Reviewed HEENT: Head is normocephalic and atraumatic. Pupils are equal and reactive. The nares are patent. Oropharynx is clear without lesions. NECK: Supple without lymphadenopathy. Traches midline. HEART: S1, S2. Regular rate and rhythm. No murmur noted denying chest pain LUNGS: No crackles or wheezes are heard. Adequate air entry bilaterally on room air ABDOMEN: Soft, nontender, nondistended with good bowel sounds. No peritoneal signs. No palpable organomegaly or masses. EXTREMITIES: Normal skin color and turgor. No cyanosis, rash, ulceration, clubbing or edema. Radial pedal pulses are 2/4 bilaterally. NEUROLOGICAL: No focal deficits. Strength and sensation are grossly intact. - Labs CBC & Chem 7: 03/16/17 10:50 03/17/17 07:45 Labs: Abnormal Lab Results - Last 24 Hours (Table) 03/16/17 03/16/17 03/17/17 Range/Units 10:50 10:50 07:45 Neutrophils # 8.3 H (1.3-7.7) k/uL Glucose 103 H (74-99) mg/dL ALT 17 L (21-72) U/L Total Protein 5.9 L (6.3-8.2) g/dL Albumin 3.3 L (3.5-5.0) g/dL Lipase 565 H (23-300) U/L Assessment and Plan Plan: Impression Present on admission nausea vomiting bilious emesis onset 4 days prior unclear etiology CAT scan of the abdomen and pelvis show moderate wall thickening of the distal esophagus extending into the diaphragm hiatus consider esophagitis neoplastm not ruled out Present on admission serum lipase elevation possible acute pancreatitis lipase on admission 565 Present on admission intractable nausea Plan Await the findings of the EGD Resume home meds as appropriate GI prophylaxis Further recommendations pending EGD findings The above dictated assessment and findings were discussed with dr juan . Impression and the plan of care have been dictated as directed. Nilda Jean nurse practitioner acting as a scribe for dr juan
--- NOTE | 2017-03-17 12:26 | HP ---
DATE OF ADMISSION: DATE OF SERVICE: 03/16/2017 CHIEF COMPLAINT: This is a 46-year-old white male presents with vomiting and abdominal pain that has been ongoing for the last 3 years. He starts to vomit for a couple days then he gets better. He denies any alcoholism issues. ( ) he is going through stress and anxiety from a divorce. No melena or hematochezia. He takes medicine Lexapro 20 mg a day at home. Fourteen-point review of systems negative except for the depression. PAST MEDICAL HISTORY: Only for anxiety, depression. Current every day smoker, apparently he had [place] Spotted Fever in 1969. FAMILY HISTORY: Father is okay. Mother is okay. Three daughters no problems. PHYSICAL EXAM: VITAL SIGNS: Stable, afebrile, well nourished, well developed, giving appropriate answers. CARDIOVASCULAR: S1, S2. LUNGS: Clear. GI is mild tenderness across diffuse abdomen. No mass or organomegaly. SKIN: Warm, dry, and intact. NEUROLOGIC: Alert and oriented x3. PSYCH: Fair mood and affect. Temperature 97.9, respiratory rate 16 to 18, pulse 66 to 72, blood pressure 140s over 80s to 90s. ASSESSMENT: 1. Pancreatitis, acute. 2. Intractable vomiting, acute. Clear liquid diet. GI consult. Monitor lipase levels.
[2017-03-17] MEDS ORDERED: SODIUM CHLORIDE 0.9% 1,000 ML IV ONE (12:59)
[2017-03-17] MEDS ORDERED: LIDOCAINE 1% INJ 10MG/ML (20 ML MDV) ONE (13:58)
[2017-03-17] MEDS ORDERED: PROPOFOL 10 MG/ML 20 ML VIAL IV ONE (13:58)
[2017-03-17] MEDS ORDERED: fentaNYL (PF) 50 MCG/ML 2 ML AMP ONE (13:58)
--- NOTE | 2017-03-17 14:37 | P.PCN ---
Date of Procedure: 03/17/17 Preoperative Diagnosis: Postoperative Diagnosis: Procedure(s) Performed: Procedure: Esophagogastroduodenoscopy and biopsy. Preoperative diagnosis: Intractable nausea and vomiting and abnormal CT of the abdomen. Postoperative diagnosis: 1. Hiatal hernia and LA grade A distal esophagitis. 2. Gastritis with an isolated area of edema and submucosal hemorrhage in the proximal body. 3. Mild duodenitis. 4. Multiple biopsies obtained from the duodenum, antrum, proximal stomach and esophagus. Preparation and sedation: Was provided by anesthesia. Brief clinical history: The patient is a 46-year-old male with history of anxiety and depression, currently going through a divorce, cigarette dependency and [place] spotted fever in 1969, presented with intractable nausea and vomiting bilious emesis 4 days. These symptoms have been chronic for more than 5 years. His parents indicated that this occurs couple times a year. Few years back, they felt it was related to his poor dentition, however, currently he has false teeth and the problem has persisted. Denies fever, chills , hematemesis hematochezia melena. No weight loss. Liver function tests normal. Amylase 88. Lipase 565 in ER, this morning 97. No history of pancreatitis. Remote EtOH more than 20 years ago. When questioned not actively drinking alcohol. Denies illicit drug use. denies epigastric pain mostly nausea. patient states his symptoms seem to be only in the morning and then he feels better in the afternoon. No changes in medications. No history of autoimmune disorders. CT of the abdomen and pelvis without oral contrast reported moderate wall thickening of the distal esophagus extending to the diaphragmatic hiatus. Radiologist recommended direct visualization for possible esophagitis/neoplasm if clinically appropriate. Liver, gallbladder, pancreas and spleen showed no significant abnormality. Procedure: With the patient on his left lateral decubitus position and after informed consent and adequate sedation, I passed the Olympus-GIF 160 video upper endoscope through the cricopharyngeus down the esophagus. GE junction was around 42-40 cm from the incisors and there was a small sliding hiatal hernia. The GE junction was irregular but there was no definite Ann's esophagus. The distal esophagus showed a short erosion or 2 consistent with LA grade A distal esophagitis. No obvious obstructing strictures or other pathology seen. The endoscope was then passed into the stomach which was insufflated with air and inspected in detail including the retroflex view in the cardia. There was then isolated area of edema erythema and submucosal hemorrhage and trabeculation in the proximal gastric body and there were areas of mottling and erythema as well as most obvious in the antrum and prepyloric area but no ulcers, bleeding or tumors. Pyloric channel did not show any ulcers. Duodenal bulb, post bulbar area and descending duodenum showed minimal mottling and erythema. I obtained biopsies from the duodenum, antrum, proximal stomach as well as the esophagus then the endoscope was withdrawn. The patient tolerated the procedure well. Plan: I summarized the findings to the patient and his parents. I am going to allow diet as tolerated and Will await biopsy results and continue acid suppressive therapy. Further plans can be made based on his course and biopsy results. I would be happy to see in the office as outpatient if his symptoms persist. Implants: Indications for Procedure: Operative Findings: Description of Procedure:
[2017-03-17 15:12] VITALS: BP 138/85; PULSE 62; TEMP 96.5
--- NOTE | 2017-03-30 14:39 | DS ---
DISCHARGE SUMMARY: DATE OF ADMISSION: 03/16/2017 DATE OF DISCHARGE: 03/17/2017 DISCHARGE MEDICATION: Lexapro 20 mg daily. CONDITION: Stable. PROGNOSIS: Guarded. Ambulate as tolerated. HOSPITAL COURSE OF EVENTS: This is a white male who came in with vomiting bilious emesis for 4 days for which it has been chronic. Consult with Dr. Zambrano was undertaken. His assessment was serum lipase elevation. Possibility of acute pancreatitis, remote alcohol usage. Esophageal thickening. Protonix was given to the IV. EGD was performed by Dr. Zambrano at which time he diagnosed a hiatal hernia with gastritis. Patient with IV Protonix was able to keep food down and recovered from this esophagitis/bilious emesis. Follow up as an outpatient. In stable condition. Cleared by GI surgeon for discharge. Medications he will be sent home on: 1. Lexapro 20 mg per day. 2. Proton pump inhibitor which was written by Dr. Zambrano. I believe he game him Prilosec 40 mg daily. Follow up as an outpatient. [facility]
== END 2017-03-17 18:15 | disposition home or self-care (01) ==
LOC: EC 10:16 → 4MS4W 13:38
PROVIDERS: ADMIT Family Medicine; ATTEND Family Medicine
DX: K44.9 Diaphragmatic hernia without obstruction or gangrene (principal); K20.9 Esophagitis, unspecified; K29.71 Gastritis, unspecified, with bleeding; R60.9 Edema, unspecified; K29.80 Duodenitis without bleeding; F41.8 Other specified anxiety disorders; A77.0 Spotted fever due to Rickettsia rickettsii; R93.5 Abnormal findings on diagnostic imaging of other abdominal regions, including retroperitoneum; K85.90 Acute pancreatitis without necrosis or infection, unspecified; F17.200 Nicotine dependence, unspecified, uncomplicated; Z79.899 Other long term (current) drug therapy
CPT/HCPCS: 43239; 96361 ×2; 96374 ×2; 96375 ×2; 99285 ×2; 36415; 93005; 88305; 80053 ×2; 82150 ×2; 83690 ×2; 85025; 88312; 88342; 74177; G0378 ×2; J2405; J2001; J3010; Q9967; J2704; C9113 ×2